=== PATIENT | female | born 1995 | race Caucasian/White ===

== ENCOUNTER 2016-04-11 18:00 | Inpatient (IN) | payer OTHER ==
[~2016-04-11] VITALS: Ht 170.2 cm; Wt 82.6 kg
[2016-04-11] MEDS ORDERED: NS 1000 ML XX PRN (20:00)
[2016-04-11] MEDS ORDERED: ZOLPIDEM TARTRATE 10 MG TAB PO PRN (20:00)
[2016-04-11] MEDS ORDERED: ACETAMINOPHEN 325 MG TAB PO PRN (20:00)
[2016-04-11] MEDS ORDERED: DINOPROSTONE 10 MG INSERT-LEAVE FOR 12 HOURS VAGINAL ONE (20:00)
[2016-04-11] MEDS ORDERED: ONDANSETRON HCL 4 MG/2 ML VIAL IV PUSH PRN (20:00)
[2016-04-11] MEDS ORDERED: SODIUM CHLORIDE 5 ML FLUSH PRN IVF (20:00)
[2016-04-11] MEDS ORDERED: PREN29TA PO (20:01)
[2016-04-11 20:03] LABS: BASOPHIL % 0.2 % (0.0-2.0); EOSINOPHIL # 0.2 TH/MM3 (0-0.4); EOSINOPHIL % 1.9 % (0.0-4.0); HEMATOCRIT 30.5 % (35.0-46.0); HEMO FLAGS DIFF FINAL; LYMPH % 14.6 % (9.0-44.0); LYMPHOCYTE # 1.5 TH/MM3 (1.0-4.8); MEAN CELL VOLUME 86.7 FL (80.0-100.0); MEAN CORPUSCULAR HEMOGLOBIN 30.6 PG (27.0-34.0); MEAN CORPUSCULAR HGB CONC 35.3 % (32.0-36.0); MONO % 7.9 % (0.0-8.0); NEUT % 75.4 % (16.0-70.0); PLATELET COUNT 303 TH/MM3 (150-450); RED BLOOD COUNT 3.52 MIL/MM3 (4.00-5.30); RED CELL DISTRIBUTION WIDTH 14.7 % (11.6-17.2); WHITE BLOOD COUNT 10.6 TH/MM3 (4.0-11.0)
[2016-04-11 20:15] VITALS: RESP 18
[2016-04-11] MEDS ORDERED: CITRIC ACID-SODIUM CITRATE LIQ 30 ML UDC PO PRN (20:15)
[2016-04-11] MEDS ORDERED: NS 1000 ML IV PRN (21:00)
[2016-04-11] MEDS: SODIUM CHLORIDE 5 ML FLUSH BID IVF SCH (21:00)
[2016-04-11 21:15] VITALS: RESP 18
[2016-04-11 21:15] LABS: BACTERIA, URINE OCC /hpf; BLOOD, URINE NEG (NEG); COMMENT (UR) CULT NOT INDICATED; CULTURE IF INDICATED CULT NOT INDICATED; GLUCOSE,URINE NEG (NEG); KETONE, URINE NEG (NEG); MUCUS URINE FEW /lpf (OCC); NITRITE,URINE NEG (NEG); PH, URINE 6.5 (5.0-8.5); SQUAMOUS EPITHELIAL CELL URINE 2 /hpf (0-5); URINE COLOR YELLOW (YELLW/STRAW)
[2016-04-11] MEDS ORDERED: LIDOCAINE HCL 1% 50 ML VIAL INFIL PRN (21:15)
[2016-04-11] MEDS ORDERED: MINERAL OIL 10 ML VIAL TOP PRN (21:15)
[2016-04-11] MEDS ORDERED: OXYTOCIN 30 UNITS 500ML PREMIX IV ONE (21:15)
[2016-04-11] MEDS ORDERED: LACTATED RINGER'S 1000 ML BOLUS IV PRN (21:15)
[2016-04-11] MEDS ORDERED: NS 500 ML BOLUS IV PRN (21:15)
[2016-04-11] MEDS ORDERED: LIDOCAINE HCL 1% 50 ML VIAL I-DERMAL PRN (21:15)
[2016-04-11 21:17] LABS: AMPHETAMINE, URINE NEG (NEG); BARBITURATES, URINE NEG (NEG); COCAINE, URINE NEG (NEG)
[2016-04-11 22:21] VITALS: BP 114/66; PULSE 91
[2016-04-11 22:23] VITALS: RESP 18
[2016-04-11 22:30] VITALS: TEMP 98.4
[2016-04-11 23:30] VITALS: RESP 18
[2016-04-11] MEDS: LACTATED RINGER'S 1000 ML IV SCH (23:54)
[2016-04-12] VITALS (61 sets, daily range): BP systolic 90–149; BP diastolic 50–97; PULSE 86–149; RESP 16–20; TEMP 97.5–99.8
[2016-04-12] MEDS ORDERED: OXYTOCIN 30 UNITS-500ML PREMIX 500 ML IV SCH (08:45)
--- NOTE | 2016-04-12 08:50 | HHI.HP ---
HPI Chief Complaint iol Date Seen: Apr 12, 2016 Travel History International Travel<30 Days: No Contact w/Intl Traveler<30Days: No Known Affected Area: No History of Present Illness HPI 21 yo G1 at 39 w 5 dy by 17 wk u/s here for iol for suspected macrosomia. She is a pt of dr Wesley. She has irreg contractions. + FM. Neg vb/lof. She had cervidil overnight. : 1 History Past Medical History Medical History: Denies Significant Hx Past Surgical History Surgical History: No Previous Surgery Family History Family History: Negative Social History Alcohol Use: No Tobacco Use: No Substance Abuse: No Allergies-Medications (Allergen,Severity, Reaction): Coded Allergies: No Known Allergies (Unverified , 04/11/16) Home Meds Reported Medications Vit-Iron Carbonyl ( Plus Iron 29-1 mg)1 Tab Tab1 Tab PO DAILY #30 TAB Ref 0 04/11/16 Review of Systems General / Constitutional: No: Fever, Weight Gain, Chills, Other Eyes: No: Diploplia, Blurred Vision, Visual changes, Pain, Photophobia HENT: No: Headaches, Vertigo, Lightheadedness Cardiovascular: No: Irregular Rhythm, Chest Pain or Discomfort, Palpitations, Tachycardia, Syncope, Varicosities, Edema, Cyanosis Respiratory: No: Cough, Short of Breath, Other Gastrointestinal: No: Nausea, Vomiting, Diarrhea Genitourinary: No: Decreased Urinary Output, Oliguria Musculoskeletal: No: Limited ROM, Weakness, Cramping, Edema, Pain Skin: No Rash, No Itching, No Dryness, No Lumps, No Change in Pigmentation, No Change in Nails, No Alopecia, No Lesions Neurologic: No: Weakness, Dizziness, Syncope, Focal Abnormalities, Coordination Problem, Headache, Slurred Speech, Seizures Psychiatric: No: Depression, Suicidal Ideations, Homicidal Ideation Endocrine: No: Heat Intolerance, Cold Intolerance, Polydipsia, Polyuria, Other Physical Exam Narrative GENERAL: Well-nourished, well-developed patient. SKIN: Warm and dry. HEAD: Normocephalic and atraumatic. EYES: No scleral icterus. No injection or drainage. ENT: No nasal drainage noted. Mucous membranes pink. Airway patent. NECK: Supple, trachea midline. No JVD. CARDIOVASCULAR: Regular rate and rhythm without murmurs, gallops, or rubs. RESPIRATORY: Breath sounds equal bilaterally. No accessory muscle use. ABDOMEN/GI: Abdomen soft, non-tender, bowel sounds present, no rebound, no guarding Gravid to 40 weeks size GENITOURINARY: External Genitalia: intact and normal in appearance Cervix: 3/70/-3, AROM clear Presentation: cephalic Uterine Contractions: irreg FHT's: Category:I Baseline:130 Reactive: y Variability: mod Decels: [-] EXTREMITIES: No cyanosis or edema. BACK: Nontender without obvious deformity. No CVA tenderness. NEUROLOGICAL: Awake and alert. Motor and sensory grossly within normal limits. Five out of 5 muscle strength in all muscle groups. Normal speech. Data Data Vital Signs Reviewed: Yes Orders Admit To Inpatient (04/11/16 ) Diet Regular Basic (04/11/16 Dinner) Activity Oob Ad Adina (04/11/16 19:40) ^ Labor Induction (04/11/16 19:40) ^ Saline Lock (04/11/16 19:40) ^ Vaginal Insert (04/11/16 19:40) ^ Vaginal Lavage (04/11/16 19:40) ^ Heart (04/11/16 19:40) Urinalysis - C+S If Indicated (04/11/16 19:44) Ob/Psych Drug Screen, Urine (04/11/16 19:44) Complete Blood Count With Diff (04/11/16 19:44) Abo/Rh Blood Type (04/11/16 19:44) Hold Clot (04/11/16 19:44) Specimen To Be Collected PRN (04/11/16 19:44) Dinoprostone Vag Insert (Cervidil Vag In (04/11/16 20:00) Sodium Chloride 0.9% Flush (Ns Flush) (04/11/16 21:00) Sodium Chloride 0.9% Flush (Ns Flush) (04/11/16 20:00) Sodium Chlor 0.9% 1000 Ml Inj (Ns 1000 M (04/11/16 20:00) Zolpidem (Ambien) (04/11/16 20:00) Ondansetron Inj (Zofran Inj) (04/11/16 20:00) Acetaminophen (Tylenol) (04/11/16 20:00) Fentanyl Inj (Fentanyl Inj) (04/11/16 20:00) Citric Acid-Sodium Citrate Liq (Bicitra (04/11/16 20:15) Code Status (04/11/16 21:03) Vital Signs (Adult) .Per protocol (04/11/16 21:03) Activity Oob Ad Adina (04/11/16 21:03) ^ Heart (04/11/16 21:03) ^ Amnioinfusion (04/11/16 21:03) Urinary Catheter Management .ONCE (04/11/16 21:03) Resp Oxygen Non Rebreathe Mask (04/11/16 ) ^ Epidural / Intrathecal Infus (04/11/16 21:03) ^ Diet Progression Instruction (04/11/16 21:03) Lactated Ringer's 1000 Ml Inj (Lr 1000 M (04/11/16 21:00) Lactated Ringer's 1000 Ml Inj (Lr 1000 M (04/11/16 21:15) Sodium Chlorid 0.9% 500 Ml Inj (Ns 500 M (04/11/16 21:15) Sodium Chlor 0.9% 1000 Ml Inj (Ns 1000 M (04/11/16 21:00) Lidocaine 1% Inj (50 Ml) (Xylocaine 1% I (04/11/16 21:15) Fentanyl Inj (Fentanyl Inj) (04/11/16 21:15) Fentanyl Inj (Fentanyl Inj) (04/11/16 21:15) Oxytocin 30 Units-500ml Premix (Pitocin (04/11/16 21:15) Lidocaine 1% Inj (50 Ml) (Xylocaine 1% I (04/11/16 21:15) Light Mineral Oil (Muri-Lube Oil) (04/11/16 21:15) Ur Bath Salts (04/11/16 20:10) Ur Heroin (04/11/16 20:10) Ur K2 Spice (04/11/16 20:10) Ur Ecstasy (04/11/16 20:10) Ur Methadone (04/11/16 20:10) Phencyclidine Urine (Pcp) (04/11/16 20:10) Diet Regular Basic (04/12/16 Breakfast) Labs Laboratory Tests Test 04/11/16 04/11/16 18:51 20:10 White Blood Count 10.6 Red Blood Count 3.52 Hemoglobin 10.8 Hematocrit 30.5 Mean Corpuscular Volume 86.7 Mean Corpuscular Hemoglobin 30.6 Mean Corpuscular Hemoglobin 35.3 Concent Red Cell Distribution Width 14.7 Platelet Count 303 Mean Platelet Volume 8.6 Neutrophils (%) (Auto) 75.4 Lymphocytes (%) (Auto) 14.6 Monocytes (%) (Auto) 7.9 Eosinophils (%) (Auto) 1.9 Basophils (%) (Auto) 0.2 Neutrophils # (Auto) 8.0 Lymphocytes # (Auto) 1.5 Monocytes # (Auto) 0.8 Eosinophils # (Auto) 0.2 Basophils # (Auto) 0.0 CBC Comment DIFF FINAL Differential Comment Blood Type O NEGATIVE Band and Hold HOLD CLOT IN BB Urine Color YELLOW Urine Turbidity CLEAR Urine pH 6.5 Urine Specific [place] 1.025 Urine Protein TRACE Urine Glucose (UA) NEG Urine Ketones NEG Urine Occult Blood NEG Urine Nitrite NEG Urine Bilirubin NEG Urine Urobilinogen LESS THAN 2.0 Urine Leukocyte Esterase NEG Urine RBC LESS THAN 1 Urine WBC 3 Urine Squamous Epithelial 2 Cells Urine Bacteria OCC Urine Mucus FEW Microscopic Urinalysis Comment CULT NOT INDICATED Urine Opiates Screen NEG Urine Barbiturates Screen NEG Urine Amphetamines Screen NEG Urine Benzodiazepines Screen NEG Urine Cocaine Screen NEG Urine Cannabinoids Screen NEG Assessment/Plan Problem List: (1) Labor and delivery indication for care or intervention (2) Marijuana use (3) Rh negative state in antepartum period Assessment and Plan 21 yo G1 with iup at 39w5d here for iol for suspected macrosomia 1) IOL - s/p cervidil overnight. AROM this check. will start pitocin 2) RH neg - rhogam eval pp 3) GBS neg 4) fetus cephalic, Cat I- projected efw 8.5-9lb based on 36 wk u/s ( 7lb) Sarah Montesinos MD Apr 12, 2016 08:50
[2016-04-12] MEDS: SODIUM CHLORIDE 5 ML FLUSH BID IVF SCH (09:00)
[2016-04-12] MEDS: LACTATED RINGER'S 1000 ML IV SCH ×2 (09:43→13:25)
[2016-04-12] MEDS ORDERED: fentaNYL 2MCG-BUPIV 0.125% INJ 100 ML ONE (10:32)
[2016-04-12] MEDS ORDERED: ePHEDrine/NS 25 MG/5 ML SYR ONE ×2 (10:41→11:19)
[2016-04-12] MEDS ORDERED: DO NOT ADMINISTER ANTICOAGULANTS XX PRN (11:45)
[2016-04-12] MEDS ORDERED: ePHEDrine/NS 50 MG/5 ML SYR IV PRN (11:45)
[2016-04-12] MEDS ORDERED: fentaNYL 2MCG-BUPIV 0.125% INJ 100 ML EPIDURAL SCH (11:45)
[2016-04-12] MEDS ORDERED: NO SYSTEM NARCOTICS XX PRN (11:45)
--- NOTE | 2016-04-12 15:21 | PD.OB.DELI ---
Delivery Date: Apr 12, 2016 Anesthesia: Epidural Episiotomy: None Vaginal Delivery: Normal Presentation: Occiput posterior Nuchal Cord: Other (cord around foot) Delayed cord clamping (45 sec): Yes Infant: Female One Minute : 8 Five Minute : 9 Weight: 9 pounds 5 oz Infant Care: Spontaneous crying Placenta: Spontaneous delivery Laceration: 1 deg Repair: Chromic interrupted Additional Information ebl 300ml Sarah Montesinos MD Apr 12, 2016 15:21
[2016-04-12] MEDS ORDERED: SODIUM CHLORIDE 0.9% FLUSH 5 ML FLUSH IV PRN (15:30)
[2016-04-12] MEDS ORDERED: BENZOCAINE 20% TOPICAL SPRAY 60 ML CAN TOPICAL PRN (15:30)
[2016-04-12] MEDS ORDERED: DOCUSATE SODIUM 50 MG/SENNA 8.6 MG TAB PO PRN (15:30)
[2016-04-12] MEDS ORDERED: WITCH HAZEL 50%/GLYCERIN 12.5% 40 PAD JAR TOPICAL PRN (15:30)
[2016-04-12] MEDS ORDERED: ALUMINUM/MAGNESIUM/SIMETH 30 ML CUP PO PRN (15:30)
[2016-04-12] MEDS ORDERED: ONDANSETRON ODT 4 MG TAB PO PRN (15:30)
[2016-04-12] MEDS ORDERED: DIPHTH/TETANUS/ACEL PERTUSSIS (BOOSTER) 0.5 ML VIAL/PFS IM ONE (16:00)
[2016-04-12] MEDS ORDERED: MEASLES, MUMPS, RUBELLA VACCINE 0.5 ML VIAL SQ ONE (16:00)
[2016-04-12] MEDS: IBUPROFEN 600 MG TAB PO PRN (20:09)
[2016-04-12] MEDS ORDERED: ZOLPIDEM TARTRATE 5 MG TAB PO PRN (21:00)
[2016-04-13] MEDS: IBUPROFEN 600 MG TAB PO PRN ×2 (06:06→22:13)
[2016-04-13] MEDS: ACETAMINOPHEN 325 MG TAB PO PRN ×4 (06:33→22:13)
[2016-04-13 08:00] VITALS: BP 113/66; PULSE 81; RESP 18; TEMP 98.1
[2016-04-13] MEDS: SODIUM CHLORIDE 0.9% FLUSH 5 ML FLUSH IV SCH (09:00)
--- NOTE | 2016-04-13 11:20 | HHI.OB ---
Subjective Post Day: 1 Remarks PPD#1, Doing well, transitioning well Objective Vitals/I&O Vital Signs Date Time Temp Pulse Resp B/P Pulse Ox O2 Delivery O2 Flow Rate FiO2 04/13/16 08:00 113/66 04/13/16 08:00 98.1 81 18 04/12/16 19:21 98.7 20 04/12/16 19:21 86 137/77 04/12/16 18:10 103 149/89 04/12/16 17:15 94 139/82 04/12/16 16:10 17 04/12/16 16:00 112 129/73 04/12/16 15:55 99.8 04/12/16 15:49 17 04/12/16 15:45 117 128/65 04/12/16 14:14 149 105/74 04/12/16 14:13 17 04/12/16 14:13 98.9 04/12/16 13:06 112 105/52 04/12/16 13:00 106 105/50 04/12/16 12:58 18 04/12/16 12:56 118 107/56 04/12/16 12:50 113 114/55 04/12/16 12:45 113 119/64 04/12/16 12:41 17 04/12/16 12:40 106 124/69 04/12/16 12:35 101 124/75 04/12/16 12:30 112 123/72 04/12/16 12:25 108 127/69 04/12/16 12:20 105 126/78 04/12/16 12:15 121 134/71 04/12/16 12:10 114 125/65 04/12/16 12:05 105 130/79 04/12/16 12:00 100 123/77 04/12/16 11:56 18 04/12/16 11:55 99 130/81 04/12/16 11:50 115 115/64 04/12/16 11:45 119 124/72 04/12/16 11:40 128 110/81 04/12/16 11:36 125 114/73 04/12/16 11:30 17 04/12/16 11:30 124 122/76 04/12/16 11:26 129 109/71 04/12/16 11:20 107 122/74 Objective Remarks GENERAL: Well-nourished, well-developed patient. CARDIOVASCULAR: Regular rate and rhythm without murmurs, gallops, or rubs. RESPIRATORY: Breath sounds equal bilaterally. No accessory muscle use. ABDOMEN/GI: Abdomen soft, non-tender. Fundus: Firm, non-tender at umbilicus. GENITOURINARY: Light to moderate bleeding. EXTREMITIES: No cyanosis or edema, non-tender, without signs of DVT. Medications and IVs Current Medications Medications (Trade) Dose Ordered Sig/Erin Route Start Time Stop Time Status Last Admin (NS Flush) 2 ml BID IV 04/12/16 21:00 (NS Flush) 2 ml UNSCH PRN IV 04/12/16 15:30 (Tylenol) 650 mg Q4H PRN PO 04/12/16 15:30 04/13/16 11:09 (Motrin) 600 mg Q6H PRN PO 04/12/16 15:30 04/13/16 06:06 (Americaine 20% Top Spr) 1 spray Q4H PRN TOPICAL 04/12/16 15:30 (Tucks Pads) 1 applic QID PRN TOPICAL 04/12/16 15:30 (Heather-Colace) 2 tab Q12H PRN PO 04/12/16 15:30 (Ambien) 5 mg HS PRN PO 04/12/16 21:00 (Mag-Al Plus Susp Liq) 15 ml Q8H PRN PO 04/12/16 15:30 (Zofran Odt) 4 mg Q6H PRN PO 04/12/16 15:30 Assessment/Plan Problem List: (1) Labor and delivery indication for care or intervention (2) Marijuana use (3) Rh negative state in antepartum period Assessment and Plan PPD@#1. stable Discharge Planning Does not meet criteria Attending Attestation Seen by Volodymyr Robledo MD Apr 13, 2016 11:20
[2016-04-14] MEDS ORDERED: MEPERIDINE HCL 50 MG/ML VIAL IM ONE ×2 (00:30→04:30)
[2016-04-14 07:50] VITALS: BP 119/80; PULSE 70; RESP 16; TEMP 97.8
--- NOTE | 2016-04-14 08:05 | HHI.OB ---
Subjective Post Day: 2 Remarks no complaints, Objective Vitals/I&O vss afeb cu=333/90 Objective Remarks GENERAL: Well-nourished, well-developed patient. CARDIOVASCULAR: Regular rate and rhythm without murmurs, gallops, or rubs. RESPIRATORY: Breath sounds equal bilaterally. No accessory muscle use. ABDOMEN/GI: Abdomen soft, non-tender. Fundus: Firm, non-tender at umbilicus. GENITOURINARY: Light to moderate bleeding. EXTREMITIES: No cyanosis or edema, non-tender, without signs of DVT. Medications and IVs Current Medications Medications (Trade) Dose Ordered Sig/Erin Route Start Time Stop Time Status Last Admin (NS Flush) 2 ml BID IV 04/12/16 21:00 (NS Flush) 2 ml UNSCH PRN IV 04/12/16 15:30 (Tylenol) 650 mg Q4H PRN PO 04/12/16 15:30 04/13/16 22:13 (Motrin) 600 mg Q6H PRN PO 04/12/16 15:30 04/13/16 22:13 (Americaine 20% Top Spr) 1 spray Q4H PRN TOPICAL 04/12/16 15:30 (Tucks Pads) 1 applic QID PRN TOPICAL 04/12/16 15:30 (Heather-Colace) 2 tab Q12H PRN PO 04/12/16 15:30 (Ambien) 5 mg HS PRN PO 04/12/16 21:00 (Mag-Al Plus Susp Liq) 15 ml Q8H PRN PO 04/12/16 15:30 (Zofran Odt) 4 mg Q6H PRN PO 04/12/16 15:30 Assessment/Plan Problem List: (1) Labor and delivery indication for care or intervention (2) Marijuana use (3) Rh negative state in antepartum period (4) Vaginal delivery Assessment and Plan PPD@#2. stable Discharge Planning today Attending Attestation pt seen by Deborah Lawrence MD Apr 14, 2016 08:05
[2016-04-14] MEDS ORDERED: IBUP-232 PO (08:07)
--- NOTE | 2016-04-14 08:07 | HHI.DCPOC ---
Discharge Care Plan Your Health Problems Are: Pelvic pain Report Symptoms to Your Doctor -Temperate above 100.5 degrees -Redness, of incision or excessive or foul smelling drainage -Unusual pain or calf pain -Increased vaginal bleeding -Painful or difficulty urinating -Feelings of extreme sadness or anxiety after 2 weeks Goals to Promote Your Health * To prevent worsening of your condition and complications * To maintain your health at the optimal level Directions to Meet Your Goals Take your medications as prescribed Follow your dietary instruction Follow activity as directed Ensure plenty of rest for recovery Drink fluids for hydration Keep your appointments as scheduled Take your immunizations and boosters as scheduled If your symptoms worsen call your PCP, if no PCP go to Urgent Care Center or Emergency Room Smoking is Dangerous to Your Health. Avoid second hand smoke Call the 24-hour crisis hotline for domestic abuse at Deborah Galan MD Apr 14, 2016 08:07
[2016-04-14] MEDS: SODIUM CHLORIDE 0.9% FLUSH 5 ML FLUSH IV SCH (09:00)
[2016-04-15 10:44] LABS: HEROIN (6-ACETYLMORPHINE) UR NEG (NEG); OBMETHADONE UR NEG (NEG); PHENCYCLIDINE URINE NEG (NEG)
[2016-04-15 10:45] LABS: BATH SALTS (MDPV) UR NEG (NEG); ECSTASY (MDMA) UR NEG (NEG); K2 SPICE UR NEG (NEG); OXYCODONE (PERCODAN) NEG (NEG)
== END 2016-04-14 11:43 | disposition home or self-care (01) | DRG 775 ==
LOC: H2EB 18:00 → H1EA 04-12 17:54
PROVIDERS: ADMIT Obstetrics & Gynecology; ATTEND Obstetrics & Gynecology
PROC: 10E0XZZ Delivery of Products of Conception, External Approach (ICD-10-PCS; principal; 2016-04-12)
PROC: 0HQ9XZZ Repair Perineum Skin, External Approach (ICD-10-PCS; 2016-04-12)
PROC: 00HU33Z Insertion of Infusion Device into Spinal Canal, Percutaneous Approach (ICD-10-PCS; 2016-04-12)
PROC: 3E0R3CZ (ICD-10-PCS; 2016-04-12)
DX: O26.893 Other specified pregnancy related conditions, third trimester (principal); O69.82X1 Labor and delivery complicated by other cord entanglement, without compression, fetus 1; Z37.0 Single live birth; O70.0 First degree perineal laceration during delivery; Z3A.39 39 weeks gestation of pregnancy; Z67.91 Unspecified blood type, Rh negative; F12.90 Cannabis use, unspecified, uncomplicated
CPT/HCPCS: 59025; 80307; 81001; 85025; 85461; 86850; 86900; 86901; 90384; G0481; J2175; J2590; J2790; J7120